=== PATIENT | female | born 1960 | race Hispanic/Latino ===

== ENCOUNTER 2017-10-05 16:01 | Emergency (ER) | payer OTHER ==
[~2017-10-05] VITALS: Ht 154.9 cm; Wt 68.0 kg
[2017-10-05 16:30] VITALS: BP 127/67
--- NOTE | 2017-10-05 16:33 | Emergency Room Report ---
History of Present Illness General Chief Complaint: Stroke Symptoms Source: Patient, Family Member Present Illness HPI The patient presents with right-sided facial weakness and a strange feeling in her tongue that began at 7:00 this morning. She woke up with a headache also. The headache is 8/10 and pounding diffuse, not radiating. She has diabetes on metformin. She states her blood sugars are controlled. She denies any chest pain or palpitations. Denies being on blood thinners other than aspirin. She had a stroke 2 years ago. They are uncertain if there is any residual, though certain that the facial weakness and numbness are new. No NVD, dysuria. No abdominal pain. No joint pain. She has a chronic rash on her R arm - elbow area which she scratches when she is nervous. A diagnosis has not been established. Occasional anxiety. Allergies: Coded Allergies: No Known Allergies (Unverified , 10/05/17) Patient History Past Medical History: see triage record, DM, CVA/TIA, other - on statins Social History: Denies: smoking, alcohol use, drug use Social History Narrative with family member Reviewed Nursing Documentation: PMH: Agreed, PSxH: Agreed Nursing Documentation-PMH Hx Diabetes: Yes Review of Systems All Other Systems: negative except mentioned in HPI Physical Exam Vital Signs Date Time Temp Pulse Resp B/P (MAP) Pulse Ox O2 Delivery O2 Flow Rate FiO2 10/05/17 16:13 98.1 92 18 143/80 95 Room Air Sp02 EP Interpretation: reviewed, normal General Appearance: well appearing, no apparent distress, GCS 15 Head: normocephalic Eyes: bilateral eye normal inspection, bilateral eye PERRL, bilateral eye EOMI - non-persistent nystagmus ENT: moist mucus membranes Neck: supple Respiratory: lungs clear, normal breath sounds Cardiovascular #1: regular rate, rhythm Cardiovascular #2: 2+ radial (R) Gastrointestinal: normal inspection, normal bowel sounds, non tender, no mass, non-distended Musculoskeletal: back normal, gait/station normal, normal range of motion Neurologic: alert, oriented x3, motor strength/tone normal, DTRs symmetric, cerebellar normal, speech normal, motor weakness - L face, sensory deficit - L face, other - tongue deviation to L - rest of CN normal Skin: warm/dry, other - plaque R external elbow area with some excoriations Medical Decision Making Diagnostic Impression: Primary Impression: Stroke-like episode 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 She is outside the window for TPA at this time however needs evaluation for possible stroke. 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 However because of diabetes she's at risk for stroke. Other suspicion other than Gordon's palsy due to the fact that she has tongue deviation suggests there might be a central origin to this weakness and numbness. She will be evaluated with CT, EKG, chest x-ray and labs. If the CT is negative aspirin will be given a. George is a headache. This could also be a migraine variant. This is a complex patient needing full evaluation. EKG without injury. Chest x-ray without infiltrates or abnormality. Labs with elevated blood sugar. CT with old right basal ganglia madden radiata infarct. No acute stroke seen. Sed rate mildly elevated. Patient is given aspirin and insulin and also is treated for pain. Neurologic exam repeated. Possibly some improvement in facial weakness. Tongue still deviated to L. An MRI is ordered. Due to the high blood sugar in the possibility of CVA the patient is discussed with Dr. Garcia and transfer is arranged. MRI not show acute infarct. This leads to high possibility of Gordon's Palsy or migraine variant. Solumedrol given for possible Gordon's. This might also make glucose more difficult to control. Patient improved and stable for transfer. Laboratory Tests Test 10/05/17 16:25 10/05/17 17:04 White Blood Count 10.1 K/UL (4.8-10.8) Red Blood Count 5.01 M/UL (4.20-5.40) Hemoglobin 14.5 G/DL (12.0-16.0) Hematocrit 44.5 % (37.0-47.0) Mean Corpuscular Volume 89 FL (80-99) Mean Corpuscular Hemoglobin 28.8 PG (27.0-31.0) Mean Corpuscular Hemoglobin Concent 32.5 G/DL (32.0-36.0) Red Cell Distribution Width 12.5 % (11.6-14.8) Platelet Count 290 K/UL (150-450) Mean Platelet Volume 7.6 FL (6.5-10.1) Neutrophils (%) (Auto) 52.1 % (45.0-75.0) Lymphocytes (%) (Auto) 38.5 % (20.0-45.0) Monocytes (%) (Auto) 6.3 % (1.0-10.0) Eosinophils (%) (Auto) 2.0 % (0.0-3.0) Basophils (%) (Auto) 1.1 % (0.0-2.0) Erythrocyte Sedimentation Rate 35 MM/HR (0-30) H Prothrombin Time 10.0 SEC (9.30-11.50) Prothrombin Time INR 1.0 (0.9-1.1) PTT 30 SEC (23-33) Sodium Level 137 MMOL/L (136-145) Potassium Level 4.3 MMOL/L (3.5-5.1) Chloride Level 101 MMOL/L (98-107) Carbon Dioxide Level 27 MMOL/L (21-32) Anion Gap 9 mmol/L (5-15) Blood Urea Nitrogen 11 mg/dL (7-18) Creatinine 0.8 MG/DL (0.55-1.30) Estimate Glomerular Filtration Rate > 60 mL/min (>60) Glucose Level 334 MG/DL (74-106) H Calcium Level 9.5 MG/DL (8.5-10.1) Total Bilirubin 0.5 MG/DL (0.2-1.0) Aspartate Amino Transferase (AST) 13 U/L (15-37) L Alanine Aminotransferase (ALT) 19 U/L (12-78) Alkaline Phosphatase 123 U/L (46-116) H Total Creatine Kinase 47 U/L (26-308) Troponin I 0.000 ng/mL (0.000-0.056) Pro-B-Type Natriuretic Peptide 19 pg/mL (0-125) Total Protein 8.0 G/DL (6.4-8.2) Albumin 3.8 G/DL (3.4-5.0) Globulin 4.2 g/dL Albumin/Globulin Ratio 0.9 (1.0-2.7) L Thyroid Stimulating Hormone (TSH) 1.152 uiU/mL (0.358-3.740) Urine Color Yellow Urine Appearance Cloudy Urine pH 6 (4.5-8.0) Urine Specific [place] 1.015 (1.005-1.035) Urine Protein Negative (NEGATIVE) Urine Glucose (UA) 4+ (NEGATIVE) H Urine Ketones Negative (NEGATIVE) Urine Occult Blood 1+ (NEGATIVE) H Urine Nitrite Positive (NEGATIVE) H Urine Bilirubin Negative (NEGATIVE) Urine Urobilinogen Normal MG/DL (0.0-1.0) Urine Leukocyte Esterase 1+ (NEGATIVE) H Urine RBC 2-4 /HPF (0 - 2) H Urine WBC 10-15 /HPF (0 - 2) H Urine Squamous Epithelial Cells Many /LPF (NONE/OCC) H Urine Bacteria Many /HPF (NONE) H EKG Diagnostic Results Rate: normal Rhythm: NSR ST Segments: no acute changes Rhythm Strip Diag. Results EP Interpretation: yes Rhythm: NSR, no PVC's, no ectopy Chest X-Ray Diagnostic Results Chest X-Ray Diagnostic Results : Chest X-Ray Ordered: Yes # of Views/Limited/Complete: 1 View Indication: Other EP Interpretation: Yes Interpretation: no consolidation, no effusion, no pneumothorax, no acute cardiopulmonary disease Impression: No acute disease CT/MRI/US Diagnostic Results CT/MRI/US Diagnostic Results #1: Imaging Test Ordered: CT Head Impression Old right basal ganglia coronal radiata infarct present. Foreign material in the sphenoid sinus no bleed or mass CT/MRI/US Diagnostic Results #2: Imaging Test Ordered: MRI brain Impression old stroke, no new stroke Last Vital Signs Date Time Temp Pulse Resp B/P (MAP) Pulse Ox O2 Delivery O2 Flow Rate FiO2 10/05/17 23:35 98.1 79 16 119/61 99 Room Air Status: improved Disposition: XFER [facility] Condition: Serious - but stable for transfer Geraldo Calvert M.D. Oct 05, 2017 16:33
[2017-10-05] MEDS ORDERED: ATORVASTATIN CA40 MG ORAL (16:39)
[2017-10-05] MEDS ORDERED: ASPIR 8181 MG ORAL (16:39)
[2017-10-05] MEDS ORDERED: METFORMIN HCL1000 M1 ORAL (16:39)
[2017-10-05 16:43] LABS: BASOPHILS % (AUTO) 1.1 % (0.0-2.0); HEMATOCRIT 44.5 % (37.0-47.0); HEMOGLOBIN 14.5 G/DL (12.0-16.0); LYMPHOCYTES % (AUTO) 38.5 % (20.0-45.0); MEAN CORPUSCULAR VOLUME 89 FL (80-99); MONOCYTES % (AUTO) 6.3 % (1.0-10.0); NEUTROPHILS % (AUTO) 52.1 % (45.0-75.0); PLATELET COUNT 290 K/UL (150-450); RED BLOOD COUNT 5.01 M/UL (4.20-5.40); RED CELL DISTRIBUTION WIDTH 12.5 % (11.6-14.8); WHITE BLOOD COUNT 10.1 K/UL (4.8-10.8)
[2017-10-05 17:18] LABS: APPEARANCE,URINE CLOUDY; BILIRUBIN, URINE NEGATIVE (NEGATIVE); GLUCOSE, URINE (UA) 4+ (NEGATIVE); KETONES,URINE NEGATIVE (NEGATIVE); LEUKOCYTE ESTERASE ,URINE 1+ (NEGATIVE); NITRITE,URINE POSITIVE (NEGATIVE); PH,URINE 6 (4.5-8.0); PROTEIN,URINE NEGATIVE (NEGATIVE); UROBILINOGEN,URINE NORMAL MG/DL (0.0-1.0)
[2017-10-05 17:21] LABS: ANION GAP 9 mmol/L (5-15); BLOOD UREA NITROGEN 11 mg/dL (7-18); CALCIUM 9.5 MG/DL (8.5-10.1); CARBON DIOXIDE 27 MMOL/L (21-32); CHLORIDE 101 MMOL/L (98-107); CREATININE 0.8 MG/DL (0.55-1.30); POTASSIUM 4.3 MMOL/L (3.5-5.1); SODIUM 137 MMOL/L (136-145)
[2017-10-05 17:31] LABS: COLOR,URINE YELLOW
[2017-10-05 17:33] LABS: ALANINE AMINOTRANSFERASE 19 U/L (12-78); ALBUMIN 3.8 G/DL (3.4-5.0); ALBUMIN/GLOBULIN RATIO 0.9 (1.0-2.7); ALKALINE PHOSPHATASE 123 U/L (46-116); ASPARTATE AMINO TRANSFERASE 13 U/L (15-37); BILIRUBIN,TOTAL 0.5 MG/DL (0.2-1.0); CREATINE KINASE 47 U/L (26-308)
[2017-10-05 18:30] VITALS: BP 130/63
[2017-10-05] MEDS ORDERED: fentaNYL 100 mcg/2 mL IV ONE (19:00)
[2017-10-05] MEDS ORDERED: cefTRIAXone 1 GM in NS 55 ML IVPB ONE (19:00)
[2017-10-05 20:30] VITALS: BP 125/64
[2017-10-05] MEDS ORDERED: Solu-MEDROL 125mg Inj IVP ONE (21:45)
[2017-10-05 22:30] VITALS: BP 124/65
[2017-10-05 23:35] VITALS: BP 119/61
--- NOTE | 2017-10-06 08:09 | Diagnostic Imaging Report ---
Reason For Exam: Right-sided facial weakness Technique: Continuous helical CT scanning of the head was performed utilizing automated exposure control without intravenous contrast material. Axial and coronal reconstructions were obtained. Comparison: 07/22/2006 CT dose: Total DLP 1298.67 mGycm; CTDI vol 70.38 mGy Findings: There is no acute intracranial hemorrhage, mass effect or midline shift. There is focal low-attenuation in the right basal ganglia/madden radiata, with density measurements similar to that of CSF. Most likely represents sequela of chronic ischemia. There is slight ex vacuo dilatation of the right lateral ventricle. The ventricles, cisterns and sulci are within normal limits for age. Very minimal periventricular hypoattenuation is seen, a nonspecific finding most likely reflecting sequela of chronic microvascular ischemia. Mastoid air cells are clear. There is mild mucosal thickening with frothy secretions in the right sphenoid sinus. No focal lesions of the bony calvarium or soft tissues of the scalp are seen. Impression: No evidence of acute intracranial hemorrhage, mass effect or midline shift. Likely remote infarct in the right basal ganglia/madden radiata. MRI may be obtained for more sensitive evaluation as clinically indicated. Right sphenoid sinus disease. This corresponds with the statrad preliminary report. The CT scanner at [facility] is accredited by the [employer] and the scans are performed using protocols designed to limit radiation exposure to as low as reasonably achievable to attain images of sufficient resolution adequate for diagnostic evaluation.
--- NOTE | 2017-10-06 09:52 | Diagnostic Imaging Report ---
Indication: Weakness Technique: XRAY Chest 1v Comparison: 12/22/2008 Findings: Heart size and mediastinal contours are within normal limits given technique. There is no focal consolidation, pneumothorax or pleural effusion. Osseous structures demonstrate no acute abnormality. Impression: No radiographic evidence of acute cardiopulmonary disease.
--- NOTE | 2017-10-06 12:31 | Diagnostic Imaging Report ---
Indication: Facial weakness Technique: MRI the brain performed utilizing T1 sagittal, T2 axial, T1 FLAIR axial, T2 FLAIR axial, T2*GRE and diffusion axial images without gadolinium. Comparison: Correlation made to concurrent noncontrast CT of the head Findings: No diffusion abnormalities are seen on diffusion weighted imaging to suggest acute infarct. There is a chronic infarct in the right madden radiata/basal ganglia. Periventricular and supratentorial white matter T2 hyperintensity are seen without mass effect, most commonly related to sequela of chronic microvascular ischemia. The sulci, ventricles and cisterns are within normal limits for age. There is no shift of midline structures. No significant extra-axial collections of fluid or blood are demonstrated. The sella and parasellar regions are unremarkable. Expected signal flow voids are seen of the vessels of the skull base. Sinus disease in the right sphenoid sinus. Mastoid air cells and remainder paranasal sinuses are clear. Orbits grossly unremarkable. Impression: Remote infarct in the right madden radiata/basal ganglia. No acute infarct. No acute intracranial hemorrhage, mass effect or midline shift. Chronic small vessel ischemic changes as above. This corresponds with the [facility]rad preliminary report.
--- NOTE | 2017-10-20 14:03 | Cardiology Report ---
APPROVED REPORT EKG Measurement Heart [id number] Normal sinus rhythm Normal ECG
== END 2017-10-05 22:10 | disposition short-term general hospital (02) ==
LOC: EDBD → EMR 16:48 → EDBD 16:48 → MERGE 16:48 → EMR 22:10
DX: G51.0 Bell's palsy (principal); E11.65 Type 2 diabetes mellitus with hyperglycemia; Z86.73 Personal history of transient ischemic attack (TIA), and cerebral infarction without residual deficits; R21 Rash and other nonspecific skin eruption
CPT/HCPCS: 36415; 70450; 70551; 71045; 80053; 81003; 82550; 82962; 83880; 84443; 84484; 85025; 85610; 85651; 85730; 87086; 87181; 93005; 96365; 96375; 99285; J0696; J1815; J2405; J2930; J3010